=== PATIENT | female | born 1990 | race Caucasian/White ===

== ENCOUNTER 2024-04-02 16:25 | Inpatient (IN) | payer MEDICAID, OTHER ==
[2024-04-02] MEDS ORDERED: OLANZapine 10 MG VIAL IM PRN (18:13)
[2024-04-02] MEDS ORDERED: hydrOXYzine HCL 50 MG/ML 1 ML VIAL IM PRN (18:13)
[2024-04-02] MEDS ORDERED: MAGNESIUM HYDROXIDE 2,400 MG/30 ML CUP PO PRN (18:13)
[2024-04-02] MEDS ORDERED: hydrOXYzine pamoate 25 MG CAP PO PRN (18:18)
[2024-04-02] MEDS: MAG HYDROX/AL HYDROX/SIMETH 355 ML BOTTLE PO PRN (19:09)
[2024-04-02] MEDS: hydrOXYzine HCL 25 MG TAB PO SCH (20:53)
[2024-04-02] MEDS: OLANZapine 10 MG TAB PO SCH (20:53)
[2024-04-02] MEDS: traZODone HCL 50 MG TAB PO SCH (20:53)
[2024-04-02] MEDS: carBAMazepine 200 MG TAB PO SCH (20:54)
[2024-04-02] MEDS: IBUPROFEN 600 MG TAB PO PRN (20:55)
[2024-04-02] MEDS: VALPROIC ACID ORAL SOLN 250 MG/5 ML CUP PO SCH (21:17)
[2024-04-02] MEDS: DIVALPROEX 500 MG TABLET.DR PO SCH (21:58)
--- NOTE | 2024-04-03 05:07 | P.CONS ---
History of Present Illness - Reason for Consult Consult date: 04/03/24 - History of Present Illness The patient is a 33-year-old female resident of [facility] who was transferred from outside facility where the patient had been admitted for psychosis. The patient was seen in the mental health unit while accompanied by MHU RN. The patient reported no active complaints at the time of interview. She denied experiencing chest discomfort, shortness of breath, fever, chills, cough, nausea, vomiting, abdominal, diarrhea. She reports recreational marijuana use and tobacco use but denied any additional illicit substance or alcohol use. Review of systems: Pertinent positives and negatives as discussed in HPI, a complete review of systems was performed and all other systems are negative. Physical examination: General: non toxic, no distress, appears at stated age, morbidly obese Derm: no unusual rashes/lesions, no unusual ecchymoses, warm, dry Head: atraumatic, normocephalic, symmetric Eyes: EOMI, no lid lag, anicteric sclera ENT: Nose and ears atraumatic, no thrush, no pharyngeal erythema Neck: trachea midline, supple Mouth: no lip lesion, mucus membranes moist Cardiovascular: S1S2 reg, no murmur, no edema Lungs: CTA bilateral, no rhonchi, no rales , no accessory muscle use Abdominal: soft, nontender to palpation, no guarding Ext: no gross muscle atrophy, no contractures, Neuro: No gross focal neuro deficits noted Psych: Alert, oriented, appropriate affect Assessment: Marijuana use Tobacco use Psychosis Elevated TSH, likely subclinical hypothyroidism Imaging: None performed Data Review: Reviewed with TSH 5.5, free T40.92, carbamazepine 2.3, A1c 5.3 Plan: Advised on importance of cessation from marijuana use Defer management of psychosis to primary psychiatry service Thank you for allowing us to participate in the care of this patient. We will follow peripherally. Do not hesitate to contact us with questions. Someone can be reached from the [facility] hospitalist group at all hours of the day at [phone]. Medications and Allergies Allergies Allergy/AdvReac Type Severity Reaction Status Date / Time acetaminophen [From Tylenol] Allergy Unknown Unknown Verified 04/02/24 16:25 patino pepper Allergy Unknown Unknown Verified 04/02/24 16:25 [place] And Derivatives Allergy Unknown Unknown Verified 04/02/24 16:25 [Coroz[place]] haloperidol [From Haldol] Allergy Unknown Unknown Verified 04/02/24 16:25 lorazepam [From Ativan] Allergy Unknown Unknown Verified 04/02/24 16:25 orange juice [Dukes] Allergy Unknown Unknown Verified 04/02/24 16:25 Penicillins Allergy Unknown Unknown Verified 04/02/24 16:25 shellfish derived Allergy Unknown Unknown Verified 04/02/24 16:25 tomato Allergy Unknown Unknown Verified 04/02/24 16:25 bee venom protein (honey bee) Allergy Unknown Verified 04/02/24 18:24 nicotine Allergy Unknown Verified 04/02/24 18:24 Physical Exam Vitals: Vital Signs Temp Pulse Resp BP Pulse Ox 04/02/24 19:14 96.9 F L 92 24 135/68 97 Intake and Output 04/02/24 04/02/24 04/03/24 14:59 22:59 06:59 Other: Weight 132.647 kg
[2024-04-03] MEDS: SERTRALINE 50 MG TAB PO SCH (08:17)
[2024-04-03 09:37] LABS: Valproic Acid (Depakene) 35.5 ug/mL
[2024-04-03 13:18] LABS: Carbamazepine (Tegretol) 2.3 UG/ML (4.0-12.0); Chol/HDL Ratio 4.33 Ratio; LDL Cholesterol,Calculated 143.1 mg/dL (0.0-131.0)
--- NOTE | 2024-04-03 14:17 | P.HP ---
Psychiatric H&P - . H&P Date: 04/03/24 History & Physical: IDENTIFYING DATA: Patient is a 33 year old woman on disability who resides in an adult foster care residence. HPI: Clarisse Cornejo is a 33 year old woman with a history of schizoaffective disorder, mild intellectual disability, and prior suicide attempt who presented as a transfer from [facility] on 04/02/24 after having had a suicide attempt. Per EPS: "Pt is transfer from [facility]. Per packet, pt was brought in from nursing home after attempting suicide by drinking half a bottle of body wash and stapling her arm. pt states that this is due to having a fight with her boyfriend. pt was apparently spitting, swearing, and in restraints in [facility]. pt also reported auditory hallucinations telling her to harm herself and others." Today, Ms. Cornejo reports having had an increase in "voices telling me to kill myself" on the day of her suicide attempt. She described having stapled her arm, showing the scars on her left forearm, and drinking body wash with the hope and intention of ending her life. Her mood had been "good" before this occurred, and she was not experiencing an increase in depression or sadness recently. The main trigger for the attempt were the voices she experienced. She describes having "a little bit" of auditory hallucinations, mostly "stupid stuff" like name-calling and put downs. She denies visual hallucinations. She reports having had one prior suicide attempt two years ago when she walked in front of a car. She did receive psychiatric care after that attempt. Her mood is "upset" today due to frustration with not receiving a CT scan, which she was under the impression she'd be getting due to bumping her head prior to arrival at this hospital. She did not sleep well last night but generally does not have difficulty sleeping. Her appetite is stable. She denies feeling anxious or excessively worried about things. She gets along well with the other residents at her adult foster retirement; she is the youngest resident there. Ms. Cornejo denies suicidal ideation today; she has no thoughts, plans, or intentions of harming herself. She also denies homicidal ideation. She denies access to firearms or other weapons at home. She reports daily marijuana use recently; she describes having obtained this from a trusted source and was not concerned about the marijuana being tampered with or laced with other substances. She also drank a fifth of Catarino prior to admission. She denies daily drinking on a regular basis. Ms. Cornejo is presently under guardianship through [facility]. PAST PSYCHIATRIC HISTORY: Patient has a history of schizoaffective disorder, mild intellectual disability, and a prior suicide attempt (running in front of a car 2 years ago). Previously admitted for inpatient care and presently receiving outpatient treatment through [facility]. Presently treated with PMH: GERD and seizures (see medical consult note for additional information) ALLERGIES: Allergy/AdvReac Type Severity Reaction Status Date / Time acetaminophen [From Tylenol] Allergy Unknown Unknown Verified 04/02/24 16:25 patino pepper Allergy Unknown Unknown Verified 04/02/24 16:25 [place] And Derivatives Allergy Unknown Unknown Verified 04/02/24 16:25 [[place]] haloperidol [From Haldol] Allergy Unknown Unknown Verified 04/02/24 16:25 lorazepam [From Ativan] Allergy Unknown Unknown Verified 04/02/24 16:25 orange juice [Acadia] Allergy Unknown Unknown Verified 04/02/24 16:25 Penicillins Allergy Unknown Unknown Verified 04/02/24 16:25 shellfish derived Allergy Unknown Unknown Verified 04/02/24 16:25 tomato Allergy Unknown Unknown Verified 04/02/24 16:25 bee venom protein (honey bee) Allergy Unknown Verified 04/02/24 18:24 nicotine Allergy Unknown Verified 04/02/24 18:24 CHEMICAL DEPENDENCY HISTORY: Recently using marijuana daily and drank a fifth of Catarino prior to admission. Denies other substance use. SOCIAL HISTORY: Patient completed 12th grade and was in special education. No employment history. Currently receives SSI. Resides in an adult foster retirement. Has a boyfriend (together 6 months). No outside social support. Denies access to firearms. Vital Signs Temp 96.9 F L 04/02/24 19:14 Pulse 92 04/02/24 19:14 Resp 24 04/02/24 19:14 BP 120/73 04/03/24 08:49 Pulse Ox 97 04/02/24 19:14 FiO2 Intake & Output 04/02/24 04/03/24 04/03/24 18:59 06:59 18:59 Weight 132.647 kg MENTAL STATUS EXAM: General Appearance: Patient appears to be younger than stated age is alert, directable, and attempts to cooperate. Patient appears to have fair hygiene and grooming. Behavior: Patient is lying down without any agitated behavior. Speech: Patient's speech is fluent and nonpressured. Mood/Affect: Patient reports their mood is "upset", affect is expressive and congruent Suicidality/Homicidality: Patient denies having any homicidal ideation intent or plan. Denies any suicidal ideations intent or plan] Perceptions: Patient denies any visual hallucinations. Patient does endorse hearing voices saying "stupid stuff;" no present command hallucinations. Though content/process: There is no evidence of any delusional thought content and thought process is linear and goal-directed. Somewhat preoccupied with getting a CT Scan. Memory and concentration: AOX3, grossly intact for the purposes of this session. Judgment and insight: poor STRENGTHS/WEAKNESSES: strength is that patient is resilient. Weakness is that patient has poor judgment and is impulsive INTELLECT: below average IMPRESSIONS: Schizoaffective disorder, by history Mild intellectual disability Consider borderline personality disorder traits PLAN: -Patient is admitted under voluntary status to MHU for stabilization of psychiatric symptoms and safety. Patient has signed adult voluntary form and medication consent and is placed in patient's chart. -Medications : - Olanzapine 10 mg BID - Sertraline 50 mg daily - Hydroxyzine 50 mg TID - Trazodone 150 mg QHS - For seizures: Carbamazepine 200 mg TID & Depakene 1000 mg QHS -Hydroxyzine and Olanzapine PRN for agitation/aggression -Patient was counselled on substance abuse and desired to cut back on use -Patient was informed of the risks, benefits and side effects of the medication and patient verbally consented to taking the medications. Patient signed med consent form and was placed in chart. -Internal Medicine consult to perform medical evaluation and physical. -SW on board for discharge planning. Encourage patient to participate in groups to work on coping skills. - Patient has a guardian through [employer]; point of contact is Tammie Meade , extension [phone] - Patient resides in an adult foster retirement. manager operating is David
[2024-04-03] MEDS: PANTOPRAZOLE 40 MG TABLET PO SCH (17:07)
--- NOTE | 2024-04-04 10:30 | CT ---
EXAMINATION TYPE: CT brain wo con DATE OF EXAM: 04/04/2024 COMPARISON: None CLINICAL INDICATION: Female, 33 years old with history of blurred vision; PHH, blurred vision CT DLP: 1037.1 mGycm Automated exposure control for dose reduction was used. Findings: The ventricles, basal cisterns and sulci over the convexities are within normal limits and there is n o mass effect or shift of midline structures. No abnormal density is seen throughout the brain parenchyma and there is no acute intra or extra-axia l hemorrhage. The posterior fossa including the brainstem, fourth ventricle and cerebellar pontine angles appear no rmal. Intraorbital contents appear normal and symmetric. Visualized paranasal sinuses and mastoid air cells are well aerated. The calvarium is intact. IMPRESSION: No significant abnormality seen. There is no acute bleed or mass effect. [facility], Workstation: [id number] 04/04/2024 10:27 AM
--- NOTE | 2024-04-04 15:22 | P.PN ---
Progress Note - Text Interval history: Patient was seen in the hallway and was directable and agreeable to speak with resume writer in the office. She described her mood as "good". She was concerned that she was vomiting and feeling nauseous this morning and was wondering if this was related to her history of seizures. Additionally she is experiencing blurry vi kimber. She was planning to go to a head CT scan shortly after our visit. Both sleep and appetite have been stable. She describes a decreased in auditory hallucinations; these have improved since she came to the hospital. She denies suicidal ideation, identified method, intent, or plan. She also denies homicidal ideation, intent, or plan. She has been talking to her boyfriend and feels that this has been positive. Patient denies any side effects from the medications and has been compliant with meds. Mental status exam: General Appearance: Patient appears to be younger than stated age is alert, directable, and attempts to cooperate. Patient appears to have fair hygiene and grooming. Behavior: Patient is seated without any agitated behavior. Speech: Patient's speech is fluent and non-pressured. Mood/Affect: Patient reports their mood is "good", affect is euthymic and congruent Suicidality/Homicidality: Patient denies having any homicidal ideation intent or plan. Denies any suicidal ideations intent or plan Perceptions: Patient denies any visual hallucinations. Patient does endorse hearing voices, but these have decreased. Though content/process: There is no evidence of any overtly delusional thought content and thought process is linear and goal-directed. Memory and concentration: AOX3, grossly intact for the purposes of this session. Judgment and insight: Questionable IMPRESSIONS: Schizoaffective disorder, by history Mild intellectual disability Consider borderline personality disorder traits Plan: -Patient is admitted under voluntary status to MHU for stabilization of psychiatric symptoms and safety. Patient has signed adult voluntary form and medication consent and is placed in patient's chart. -Patient continues to meet criteria for inpatient psychiatric admission for symptom stabilization and safety. -Medications : - Olanzapine 10 mg BID - Sertraline 50 mg daily - Hydroxyzine 50 mg TID - Trazodone 150 mg QHS - For seizures: Carbamazepine 200 mg TID & Depakene 1000 mg QHS -Hydroxyzine and Olanzapine PRN for agitation/aggression -Patient was counselled on substance abuse and desired to cut back on use -Patient was informed of the risks, benefits and side effects of the medication and patient verbally consented to taking the medications. Patient signed med consent form and was placed in chart. -Internal Medicine consult completed. Head CT was unremarkable. -Encourage patient to participate in groups to work on coping skills. - Patient has a guardian through [employer]; point of contact is Tammie Meade , extension [phone] - Patient resides in an adult foster [facility]. manpower development manager is David
--- NOTE | 2024-04-05 11:46 | P.PN ---
Progress Note - Text Progress Note Date: 04/05/24 Interval history: Patient was seen in the hallway and was directable and agreeable to speak with technical document writer in the office. Patient claims that she is feeling "a bit angry" however did state overall that she is getting along with others, doing well. Reflected back on why she came to the hospital. States that she stabled her skin and also was hearing voices. She minimized any stressors going on in her life. She did appear to be fairly future oriented, focused on discharge. Denying any problems with her medications at this time or side effects. We spoke about adjusting her Zoloft to help with her anxiety and also mood swings. Patient was also agreeable to have her Depakote increased at nighttime. She denies suicidal ideation, identified method, intent, or plan. She also denies homicidal ideation, intent, or plan. She is denying any auditory or visual hallucinations. Mental status exam: General Appearance: Patient appears to be overweight, shaved head, than stated age is alert, directable, and attempts to cooperate. Patient appears to have fair hygiene and grooming. Behavior: Patient is seated without any agitated behavior. Comes to cooperate Speech: Patient's speech is fluent and non-pressured. Mood/Affect: Patient reports their mood is "a bit angry today", affect is euthymic and congruent Suicidality/Homicidality: Patient denies having any homicidal ideation intent or plan. Denies any suicidal ideations intent or plan Perceptions: Patient denies any visual hallucinations. denies any auditory hallucinations. Though content/process: There is no evidence of any overtly delusional thought content and thought process is linear and goal-directed. focused on discharge Memory and concentration: AOX3, grossly intact for the purposes of this session. Judgment and insight: chronically impulsive/poor, improving mildly IMPRESSIONS: Schizoaffective disorder Mild intellectual disability borderline personality disorder Plan: -Patient is admitted under voluntary status to MHU for stabilization of psychiatric symptoms and safety. Patient has signed adult voluntary form and medication consent and is placed in patient's chart. -Patient continues to meet criteria for inpatient psychiatric admission for symptom stabilization and safety. -Medications : - Olanzapine 10 mg BID - increase Sertraline 100 mg daily - Hydroxyzine 50 mg TID - Trazodone 150 mg QHS - Carbamazepine 200 mg TID & increase Depakene 1500 mg QHS for mood stabilization -Hydroxyzine and Olanzapine PRN for agitation/[id number] -Encourage patient to participate in groups to work on coping skills. -Hopeful for discharge tomorrow patient will be going back to her skilled nursing.
[2024-04-05] MEDS: OLANZapine 5 MG TAB PO PRN (12:14)
[2024-04-05] MEDS: SERTRALINE 50 MG TAB PO STA (12:14)
[2024-04-05] MEDS: chlorproMAZINE 25 MG/ML 2 ML AMP IM ONE (13:20)
[2024-04-05] MEDS ORDERED: BENZTROPINE MESYLATE 1 MG TAB PO PRN (14:14)
[2024-04-05] MEDS: VALPROIC ACID ORAL SOLN 250 MG/5 ML CUP PO SCH (21:48)
[2024-04-06] MEDS: SERTRALINE 100 MG TAB PO SCH (09:04)
--- NOTE | 2024-04-06 11:27 | P.PN ---
Progress Note - Text Progress Note Date: 04/06/24 Interval history: Patient was seen in the hallway and was directable and agreeable to speak with video games storywriter in the office. Patient claims that she is doing a bit better today. She states that at she slept fairly at nighttime. She continues to be fairly somatically preoccupied, believes that she possibly had a seizure last night and alert of the staff. She received a as needed yesterday for agitation towards another patient. She appears to be more cooperative today and directable during conversation. Continues to have very poor insight poor judgment poor impulse control. She claims that she could possibly go to [facility] however is waiting for guardian approval. Denying any problems with her medications at this time or side effects. She denies suicidal ideation, identified method, intent, or plan. She also denies homicidal ideation, intent, or plan. She is denying any auditory or visual hallucinations. Mental status exam: General Appearance: Patient appears to be overweight, shaved head, than stated age is alert, directable, and attempts to cooperate. Patient appears to have fair hygiene and grooming. Behavior: Patient is seated without any agitated behavior. Attempts to cooperate Speech: Patient's speech is fluent and non-pressured. Mood/Affect: Patient reports their mood is "a bit better", affect is congruent Suicidality/Homicidality: Patient denies having any homicidal ideation intent or plan. Denies any suicidal ideations intent or plan Perceptions: Patient denies any visual hallucinations. denies any auditory hallucinations. Though content/process: There is no evidence of any overtly delusional thought content and thought process is linear and goal-directed. focused on discharge, somatically preoccupied Memory and concentration: AOX3, grossly intact for the purposes of this session. Judgment and insight: chronically impulsive/poor, improving mildly IMPRESSIONS: Schizoaffective disorder Mild intellectual disability borderline personality disorder Plan: -Patient is admitted under voluntary status to MHU for stabilization of psychiatric symptoms and safety. Patient has signed adult voluntary form and medication consent and is placed in patient's chart. -Patient continues to meet criteria for inpatient psychiatric admission for sy mptom stabilization and safety. -Medications : - Olanzapine 10 mg BID - Sertraline 100 mg daily - Hydroxyzine 50 mg TID - Trazodone 150 mg QHS - Carbamazepine 200 mg TID & Depakene 1500 mg QHS for mood stabilization -Hydroxyzine and Olanzapine PRN for agitation/aggression -Encourage patient to participate in groups to work on coping skills. -Hopeful for discharge once patient gets placement, will continue working with cari mares for this
--- NOTE | 2024-04-07 11:24 | P.PN ---
Progress Note - Text Progress Note Date: 04/07/24 Interval history: Patient was seen in the hallway and was directable and agreeable to speak with public relations writer in the office. Patient claims that she is doing a bit better today overall, did not report any overnight complaints. She states that at she did not sleep well last night, was requesting to have her trazodone increased. She was less somatically preoccupied today. She was focused on discharge planning, was fairly focused on calling different group homes to ask for a bed. We spoke about the plan involving social sciences research scientist and her guardian she seemed to be agreeable and will be waiting for a crisis bed. She appears to be more cooperative today and directable during conversation. Continues to have poor insight poor judgment poor impulse control however this is improving mildly. Denying any problems with her medications at this time or side effects. She denies suicidal ideation, identified method, intent, or plan. She also denies homicidal ideation, intent, or plan. She is denying any auditory or visual hallucinations. Mental status exam: General Appearance: Patient appears to be overweight, shaved head, than stated age is alert, directable, and attempts to cooperate. Patient appears to have fair hygiene and grooming. Behavior: Patient is seated without any agitated behavior. Attempts to cooperate Speech: Patient's speech is fluent and non-pressured. Mood/Affect: Patient reports their mood is "ok", affect is congruent Suicidality/Homicidality: Patient denies having any homicidal ideation intent or plan. Denies any suicidal ideations intent or plan Perceptions: Patient denies any visual hallucinations. denies any auditory hallucinations. Though content/process: There is no evidence of any overtly delusional thought content and thought process is linear and goal-directed. focused on discharge Memory and concentration: AOX3, grossly intact for the purposes of this session. Judgment and insight: chronically impulsive/poor, improving mildly IMPRESSIONS: Schizoaffective disorder Mild intellectual disability borderline personality disorder Plan: -Patient is admitted under voluntary status to MHU for stabilization of psychiatric symptoms and safety. Patient has signed adult voluntary form and medication consent and is placed in patient's chart. -Patient continues to meet criteria for inpatient psychiatric admission for symptom stabilization and safety. -Medications : - Olanzapine 10 mg BID - Sertraline 100 mg daily - Hydroxyzine 50 mg TID -Increase trazodone to 100 mg QHS - Carbamazepine 200 mg TID & Depakene 1500 mg QHS for mood stabilization -Hydroxyzine and Olanzapine PRN for agitation/aggression -Encourage patient to participate in groups to work on coping skills. -Hopeful for discharge once patient gets placement, will continue working with cari mares for this as they are attempting to get patient a crisis bed in [facility].
[2024-04-07] MEDS: traZODone HCL 100 MG TAB PO SCH (20:39)
--- NOTE | 2024-04-08 10:29 | P.PN ---
Progress Note - Text Progress Note Date: 04/08/24 Interval history: Patient was seen in the hallway and was directable and agreeable to speak with technical writer. She states that yesterday her knee was a bit swollen and she was having some pain, did not say that she had any trauma to it. She took ibuprofen which helped. Patient was fairly focused on her medications today, asked to have a Tegretol level drawn. Patient claims that she is doing a bit better today overall, did not report any overnight complaints. She states that she slept a bit better last night. She was focused on discharge planning, was fairly focused on calling different group homes to ask for a bed however she was told due to the lack of beds and also the holiday, it is unlikely that a bed will be free for her to go to. Continues to have poor insight poor judgment poor impulse control however this is improving mildly. Denying any problems with her medications at this time or side effects. She denies suicidal ideation, identified method, intent, or plan. She also denies homicidal ideation, intent, or plan. She is denying any auditory or visual hallucinations. Mental status exam: General Appearance: Patient appears to be overweight, shaved head, than stated age is alert, directable, and attempts to cooperate. Patient appears to have fair hygiene and grooming. Behavior: Patient is seated without any agitated behavior. Attempts to cooperate Speech: Patient's speech is fluent and non-pressured. Mood/Affect: Patient reports their mood is "ok", affect is congruent Suicidality/Homicidality: Patient denies having any homicidal ideation intent or plan. Denies any suicidal ideations intent or plan Perceptions: Patient denies any visual hallucinations. denies any auditory hallucinations. Though content/process: There is no evidence of any overtly delusional thought content and thought process is linear and goal-directed. focused on discharge and somatically preoccupied Memory and concentration: AOX3, grossly intact for the purposes of this session. Judgment and insight: chronically impulsive/poor, improving mildly IMPRESSIONS: Schizoaffective disorder Mild intellectual disability borderline personality disorder Plan: -Patient is admitted under voluntary status to MHU for stabilization of psychiatric symptoms and safety. Patient has signed adult voluntary form and medication consent and is placed in patient's chart. -Patient continues to meet criteria for inpatient psychiatric admission for symptom stabilization and safety. -Medications : - Olanzapine 10 mg BID - Sertraline 100 mg daily - Hydroxyzine 50 mg TID -trazodone to 100 mg QHS - Carbamazepine 200 mg TID & Depakene 1500 mg QHS for mood stabilization -ordered tegretol level for tomorrow morning. -Hydroxyzine and Olanzapine PRN for agitation/aggression -Encourage patient to participate in groups to work on coping skills. -Hopeful for discharge once patient gets placement, will continue working with [facility] for this as they are attempting to get patient a crisis bed in [facility]. likely discharge next week once crisis bed is available.
--- NOTE | 2024-04-09 10:51 | P.PN ---
Progress Note - Text Progress Note Date: 04/09/24 Interval history: Patient was seen in in her room today. She apparently was aggressive agitated last night spitting at staff and verbally aggressive as well. She received Thorazine IM. Patient slept through the night. She appeared to be fairly drowsy this morning, continues to be fairly uncooperative very poor insight and poor judgment. Continues to focus on having a assisted bed [facility] This has not been confirmed by any staff members or social science professor. She continues to be focused on her guardian. Denying any problems with her medications at this time or side effects. She denies suicidal ideation, identified method, intent, or plan. She also denies homicidal ideation, intent, or plan. She is denying any auditory or visual hallucinations. Mental status exam: General Appearance: Patient appears to be overweight, shaved head, than stated age is alert, directable, and attempts to cooperate. Patient appears to have fair hygiene and grooming. Behavior: Patient is seated without any agitated behavior. Attempts to cooperate, remains impulsive Speech: Patient's speech is fluent and non-pressured. Mood/Affect: Patient reports their mood is "fine", affect is incongruent Suicidality/Homicidality: Patient denies having any homicidal ideation intent or plan. Denies any suicidal ideations intent or plan Perceptions: Patient denies any visual hallucinations. denies any auditory hallucinations. Though content/process: There is no evidence of any overtly delusional thought content and thought process is linear and goal-directed. focused on discharge and her gaurdian. Memory and concentration: AOX3, grossly intact for the purposes of this session. Judgment and insight: chronically impulsive/poor IMPRESSIONS: Schizoaffective disorder Mild intellectual disability borderline personality disorder Plan: -Patient is admitted under voluntary status to MHU for stabilization of psychiatric symptoms and safety. Patient has signed adult voluntary form and medication consent and is placed in patient's chart. -Patient continues to meet criteria for inpatient psychiatric admission for symptom stabilization and safety. -Medications : - Olanzapine 10 mg BID - Sertraline 100 mg daily - Hydroxyzine 50 mg TID -trazodone 100 mg QHS - Carbamazepine 200 mg TID & Depakene 1500 mg QHS for mood stabilization -tegretol level - pending -Hydroxyzine, benadryl and Thorazine PRN for agitation/aggression -Encourage patient to participate in groups to work on coping skills. -Hopeful for discharge once patient gets placement, will continue working with [facility] for this as they are attempting to get patient a crisis bed in [facility]. likely discharge next week once crisis bed is available.
[2024-04-09] MEDS: busPIRone HCl 10 MG TAB PO PRN (20:50)
[2024-04-10 00:51] LABS: Appearance,Urine Clear (Clear); Bacteria,Urine Rare /hpf; Bilirubin,Urine Negative (Negative); Blood,Urine Trace (Negative); Budding Yeast,Urine Rare /hpf; Color,Urine Colorless; Glucose,Urine (UA) Negative (Negative); Ketones,Urine 1+ (Negative); Leukocyte Esterase,Urine Small (Negative); Mucus,Urine Rare /hpf; Nitrite,Urine Negative (Negative); PH, Urine 5.5 (5.0-8.0); Protein,Urine Negative (Negative); RBC,Urine 2 /hpf (0-5); Specific Gravity,Urine 1.024 (1.001-1.035); Squamous Epithelial Cell,Urine 3 /hpf (0-4); Urobilinogen,Urine <2.0 mg/dL (<2.0); WBC,Urine 2 /hpf (0-5)
--- NOTE | 2024-04-10 10:56 | P.PN ---
Progress Note - Text Progress Note Date: 04/10/24 Interval history: Patient was seen wandering the hallways and was directable and agreeable to s peak with consumer loan underwriter. Patient states that she had a good response to BuSpar, was requesting to have it scheduled. She also wanted the Vistaril discontinued. She claims that she is doing a bit better today with her mood and anxiety. She states that she is sleeping on and off last night we spoke about adding Remeron which she is okay with. She continues to be focused on discharge, we spoke about coping skills. At this time patient denies any suicidal or homicidal ideations intent or plan. Denies any Auditory or visual hallucinations. Patient denies any side effects from the medications and has been compliant with meds. Mental status exam: General Appearance: Patient appears to be overweight, shaved head, stated age is alert, directable, and cooperative. Behavior: No agitated behavior. Patient is calm and directable ems to cooperate Speech: Patient's speech is fluent and nonpressured. Mood/Affect: Mood is improving mildly, affect is congruent and constricted. Suicidality/Homicidality: Patient denies having any suicidal or homicidal ideation intent or plan. Perceptions: Patient denies any auditory or visual hallucinations. Though content/process: There is no evidence of any delusional thought content and thought process is linear and goal-directed. Focused on her symptoms and discharge Memory and concentration: AOX3, grossly intact for the purposes of this session Judgment and insight: improving mildly Assessment/Plan: Continue with current diagnosis. Patient continues to meet criteria for inpatient psychiatric admission for symptom stabilization and safety. Patient will be maintained on current psychotropic medication regimen with the exception of starting scheduled BuSpar twice daily and Remeron 15 mg nightly. Monitor for medication compliance and for any psychotropic medication side effects. Will continue to monitor ongoing response to treatment. Encouraged participation in milieu. Hopeful for discharge Friday or Friday
[2024-04-10] MEDS: diphenhydrAMINE 50 MG CAP PO PRN (19:09)
[2024-04-10] MEDS: MIRTAZAPINE 15 MG TAB PO SCH (20:10)
[2024-04-10] MEDS: busPIRone HCl 10 MG TAB PO SCH (20:11)
--- NOTE | 2024-04-11 09:37 | P.PN ---
Progress Note - Text Progress Note Date: 04/11/24 Interval history: Patient was seen wandering the hallways and was directable and agreeable to s peak with bond writer. patient claims that shes doing well overall today. She is continuing to be fairly focused on discharge. Claims that her anxiety and movement have been improving. She was fairly directable today. She did complain of having a boil for the past 2 days on her upper thigh. Recovery Room Rn performed an examination on this accompanied by vineyardist nurse. Patient did claim that it was hurting her at this time. She did sleep last night throughout the night has a fair appetite. At this time patient denies any suicidal or homicidal ideations intent or plan. Denies any Auditory or visual hallucinations. Patient denies any side effects from the medications and has been compliant with meds. Mental status exam: General Appearance: Patient appears to be overweight, shaved head, stated age is alert, directable, and cooperative. Behavior: No agitated behavior. Patient is calm and directable ems to cooperate Speech: Patient's speech is fluent and nonpressured. Mood/Affect: Mood is improving mildly, affect is congruent and constricted. Improving Suicidality/Homicidality: Patient denies having any suicidal or homicidal ideation intent or plan. Perceptions: Patient denies any auditory or visual hallucinations. Though content/process: There is no evidence of any delusional thought content and thought process is linear and goal-directed. Focused on her symptoms and discharge, improving Memory and concentration: AOX3, grossly intact for the purposes of this session Judgment and insight: improving mildly Assessment/Plan: Continue with current diagnosis. Patient continues to meet criteria for inpatient psychiatric admission for symptom stabilization and safety. Patient will be maintained on current psychotropic medication regimen. Monitor for medication compliance and for any psychotropic medication side effects. Will continue to monitor ongoing response to treatment. Encouraged participation in milieu. Hopeful for discharge Friday or Friday
[2024-04-11] MEDS: CEPHALEXIN 500 MG CAP PO SCH (09:55)
[2024-04-12] MEDS: chlorproMAZINE 25 MG TAB PO PRN (09:32)
--- NOTE | 2024-04-12 10:24 | P.PN ---
Progress Note - Text Progress Note Date: 04/12/24 Interval history: Patient was seen wandering the hallways today. Patient was fairly persistent and wanting to speak to procedure writer today in the office. She states that she feels that she could get into a bed however feels the social sciences department chair is not helping her enough. She did appear to be somewhat irritated this morning, claims that she did not go to group because she was feeling upset. She is focused on discharge throughout the entire conversation. Claims that she had a difficult time sleepi ng last night asked to have her medications adjusted for nighttime. States that she has been eating well, mood and anxiety been improving. Denying any problems with her medications at this time or side effects. She denies suicidal ideation, identified method, intent, or plan. She also denies homicidal ideation, intent, or plan. She is denying any auditory or visual hallucinations. Mental status exam: General Appearance: Patient appears to be overweight, shaved head, than stated age is alert, directable, and attempts to cooperate. Patient appears to have fair hygiene and grooming. Behavior: Patient is seated without any agitated behavior. Attempts to cooperate, improving today Speech: Patient's speech is fluent and non-pressured. Mood/Affect: Patient reports their mood is "ok", affect is congruent Suicidality/Homicidality: Patient denies having any homicidal ideation intent or plan. Denies any suicidal ideations intent or plan Perceptions: Patient denies any visual hallucinations. denies any auditory hallucinations. Though content/process: There is no evidence of any overtly delusional thought content and thought process is linear and goal-directed. focused on discharge Memory and concentration: AOX3, grossly intact for the purposes of this session. Judgment and insight: improving IMPRESSIONS: Schizoaffective disorder Mild intellectual disability borderline personality disorder Plan: -Patient is admitted under voluntary status to MHU for stabilization of psychiatric symptoms and safety. Patient has signed adult voluntary form and medication consent and is placed in patient's chart. -Patient continues to meet criteria for inpatient psychiatric admission for symptom stabilization and safety. -Medications : - Olanzapine 10 mg BID - Sertraline 100 mg daily - Hydroxyzine 50 mg TID -increase remeron 30 mg qhs -increase buspar to 30 mg bid -Increase trazodone 300 mg QHS - Carbamazepine 200 mg TID & Depakene 1500 mg QHS for mood stabilization -tegretol level - pending -Hydroxyzine, benadryl and Thorazine PRN for agitation/aggression -Encourage patient to participate in groups to work on coping skills. -Hopeful for discharge once patient gets placement, will continue working with [facility] for this as they are attempting to get patient a crisis bed in [facility]. likely discharge this week once crisis bed is available.
[2024-04-12] MEDS: busPIRone HCl 10 MG TAB PO SCH (20:34)
[2024-04-12] MEDS: traZODone HCL 100 MG TAB PO SCH (20:35)
[2024-04-12] MEDS: MIRTAZAPINE 15 MG TAB PO SCH (20:37)
--- NOTE | 2024-04-13 10:55 | P.PN ---
Progress Note - Text Progress Note Date: 04/13/24 Interval history: Patient was seen wandering the hallways today. Patient continues to be fairly focused on her medications and claims that she injured her knee when she had a seizure the other day. She states that she wants an x-ray. She also continues to be fairly demanding in terms of having a dietary consultation. She is not reporting any depression or anxiety at this time. Claims that she is getting along with others going to groups. She is focused on discharge throughout most of the conversation. Says she was able to sleep about 6 or 7 hours last night. States that she has been eating well, mood and anxiety been improving. Denying any problems with her medications at this time or side effects. She denies suicidal ideation, identified method, intent, or plan. She also denies homicidal ideation, intent, or plan. She is denying any auditory or visual hallucinations. Mental status exam: General Appearance: Patient appears to be overweight, shaved head, than stated age is alert, directable, and attempts to cooperate. Patient appears to have fair hygiene and grooming. Behavior: Patient is seated without any agitated behavior. Attempts to cooperate, improving today Speech: Patient's speech is fluent and non-pressured. Mood/Affect: Patient reports their mood is "ok", affect is congruent Suicidality/Homicidality: Patient denies having any homicidal ideation intent or plan. Denies any suicidal ideations intent or plan Perceptions: Patient denies any visual hallucinations. denies any auditory hallucinations. Though content/process: There is no evidence of any overtly delusional thought content and thought process is linear and goal-directed. focused on discharge Memory and concentration: AOX3, grossly intact for the purposes of this session. Judgment and insight: improving IMPRESSIONS: Schizoaffective disorder Mild intellectual disability borderline personality disorder Plan: -Patient is admitted under voluntary status to MHU for stabilization of psychiatric symptoms and safety. Patient has signed adult voluntary form and medication consent and is placed in patient's chart. -Patient continues to meet criteria for inpatient psychiatric admission for symptom stabilization and safety. -Medications : - Olanzapine 10 mg BID - Sertraline 100 mg daily - Hydroxyzine 50 mg TID -remeron 30 mg qhs -d/c buspar due to reported intolerance -trazodone 300 mg QHS - Carbamazepine 200 mg TID & Depakene 1500 mg QHS for mood stabilization -Hydroxyzine, benadryl and Thorazine PRN for agitation/aggression -Encourage patient to participate in groups to work on coping skills. -Hopeful for discharge once patient gets placement, will continue working with [facility] for help with placement. [employer] utility worker to contact guardian today to see if guardian would be okay with temporary hotel/motel or senior living while patient is awaiting a crisis bed. likely discharge in 1 to 2 days
--- NOTE | 2024-04-13 11:02 | XR ---
EXAMINATION TYPE: XR knee complete LT DATE OF EXAM: 04/13/2024 10:26 AM COMPARISON: None CLINICAL INDICATION: Female, 33 years old with history of knee injury/pain; PHH, pain TECHNIQUE: XR knee complete LT 3 views submitted. FINDINGS: No evidence of any acute osseous pathology, soft tissue swelling, or joint effusion is no sriram. IMPRESSION: 1. No acute osseous pathology. 2. Mild tricompartmental osteoarthritic changes. [facility], , 04/13/2024 11:00 AM
[2024-04-13] MEDS: IBUPROFEN 800 MG TAB PO PRN (12:51)
[2024-04-14 08:30] LABS: Glucose,Whole Blood 171 mg/dL (70-110)
--- NOTE | 2024-04-14 10:09 | P.PN ---
Progress Note - Text Progress Note Date: 04/14/24 Interval history: Patient was seen wandering the hallways today. Patient continues to be fairly focused on her medications. She did state that her blood sugars were elevated at 171. She requested to have a hemoglobin A1c checked. Claims that other than that her mood has been fairly stable she has been interacting with others. She continues to be fairly somatically preoccupied and needy. States that she slept fairly last night, has a fair appetite. mood and anxiety been improving. Den huma any problems with her medications at this time or side effects. She denies suicidal ideation, identified method, intent, or plan. She also denies homicidal ideation, intent, or plan. She is denying any auditory or visual hallucinations. Mental status exam: General Appearance: Patient appears to be overweight, shaved head, than stated age is alert, directable, and attempts to cooperate. Patient appears to have fair hygiene and grooming. Behavior: Patient is seated without any agitated behavior. Attempts to cooperate, improving today Speech: Patient's speech is fluent and non-pressured. Mood/Affect: Patient reports their mood is "good", affect is congruent and improving Suicidality/Homicidality: Patient denies having any homicidal ideation intent or plan. Denies any suicidal ideations intent or plan Perceptions: Patient denies any visual hallucinations. denies any auditory hallucinations. Though content/process: There is no evidence of any overtly delusional thought content and thought process is linear and goal-directed. focused on discharge and somatically preoccupied Memory and concentration: AOX3, grossly intact for the purposes of this session. Judgment and insight: improving IMPRESSIONS: Schizoaffective disorder Mild intellectual disability borderline personality disorder Plan: -Patient is admitted under voluntary status to MHU for stabilization of psych iatric symptoms and safety. Patient has signed adult voluntary form and medication consent and is placed in patient's chart. -Patient continues to meet criteria for inpatient psychiatric admission for symptom stabilization and safety. -Medications : - Olanzapine 10 mg BID - Sertraline 100 mg daily - Hydroxyzine 50 mg TID -remeron 30 mg qhs -trazodone 300 mg QHS - Carbamazepine 200 mg TID & Depakene 1500 mg QHS for mood stabilization -Check hemoglobin A1c today. -Hydroxyzine, benadryl and Thorazine PRN for agitation/aggression -Encourage patient to participate in groups to work on coping skills. -Hopeful for discharge once patient gets placement, will continue working with [facility] for help with placement. grey roll worker to contact guardian today to see if guardian would be okay with temporary hotel/motel or senior care while patient is awaiting a crisis bed. likely discharge in 1 to 2 days
[2024-04-14 12:16] LABS: Glucose,Whole Blood 108 mg/dL (70-110)
--- NOTE | 2024-04-14 14:30 | P.PN ---
Subjective Principal diagnosis: Claudia is a 33-year-old female resident of [facility] who was transferred from outside facility where the patient had been admitted for psychosis. Internal medicine was notified that the patient was noted to be hypertensive, having blurrzy vision and had reported dizziness. We were asked to re-evaluate by the patient. Objective - Vital Signs Vital signs: Vital Signs Temp 97.9 F 04/14/24 07:13 Pulse 82 04/14/24 14:00 Resp 16 04/14/24 14:00 BP 152/90 04/14/24 14:00 Pulse Ox 98 04/14/24 07:13 FiO2 - Exam General: Female, appears stated age, obese Derm: no unusual rashes/lesions, no unusual ecchymoses, warm, dry Head: atraumatic, normocephalic, symmetric Eyes: Amblyopia of right eye, no lid lag, anicteric sclera. ENT: Nose and ears atraumatic, no thrush, no pharyngeal erythema Neck: trachea midline, supple Mouth: no lip lesion, mucus membranes moist Cardiovascular: S1S2 reg, no murmur, no edema Lungs: CTA bilateral, no rhonchi, no rales , no accessory muscle use Abdominal: soft, nontender to palpation, no guarding Ext: no gross muscle atrophy, no contractures, Neuro: Bilateral upper and motor strength appears to be 5 out of 5 in strength. Gait was not tested Psych: There appears to be a degree of factitious disorder. She reports that she has left upper extremity weakness however upon my evaluation the patient was noted to be drifting and have full motor strength of her left upper extremity. In addition she has adequate defensive reflexes when tested - Labs Labs: Abnormal Lab Results - Last 24 Hours (Table) 04/14/24 Range/Units 08:29 POC Glucose (mg/dL) 171 H (70-110) mg/dL Assessment and Plan Assessment: #) Factitious disorder. Internal medicine was asked to reevaluate Clarisse upon her request given her nonspecific symptoms of dizziness and blurred vision. She appears to have pupils that spun appropriately to bilateral light stimuli. In addition I have tested some of her defensive reflexes such as hand drop and she is able to appropriately maneuver her hand to avoid causing self-harm. In addition her vital signs appear to be stable. #) Cannabis use- recommend cessation #) Tobacco use- recommend cessation -I do see that there is a C. difficile that is pending from April 13. If by 24 hours there is no stool sample collected I would recommend discontinuation. Thank you for allowing us to participate in the care of this patient. Do not hesitate to contact us with questions. Someone can be reached from the [facility] hospitalist group at all hours of the day at [phone]. Time with Patient: Greater than 30
[2024-04-14 14:46] VITALS: BMI 51.2
[2024-04-14] MEDS: chlorproMAZINE 25 MG/ML 2 ML AMP IM PRN (20:10)
[2024-04-14] MEDS: diphenhydrAMINE 50 MG/ML 1 ML VIAL IM PRN (20:10)
[2024-04-14] MEDS ORDERED: ZIPRASIDONE 20 MG VIAL IM PRN (22:14)
[2024-04-14] MEDS: ZIPRASIDONE 20 MG CAP PO PRN (22:26)
[2024-04-15] MEDS ORDERED: ZIPRASIDONE 20 MG VIAL IM PRN (11:35)
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
[2024-04-15] MEDS: VALPROIC ACID ORAL SOLN 250 MG/5 ML CUP PO SCH (12:14)
--- NOTE | 2024-04-15 14:19 | XR ---
EXAMINATION TYPE: XR wrist limited LT, XR elbow limited LT, XR shoulder limited LT DATE OF EXAM: 04/15/2024 2:04 PM COMPARISON: None CLINICAL INDICATION: Female, 33 years old with history of pain; PHH, pain TECHNIQUE: XR wrist limited LT, XR elbow limited LT, XR shoulder limited LT; 2 views of the wrist, 2 views of the shoulder, 2 views of the elbow. FINDINGS: No acute osseous pathology, joint dislocation, or joint effusion. No evidence of any soft tissue swelling is seen. IMPRESSION: No acute osseous pathology. [facility], , 04/15/2024 2:16 PM
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
[2024-04-17] MEDS: diphenhydrAMINE 50 MG CAP PO STA (13:53)
[2024-04-17] MEDS: predniSONE 20 MG TAB PO STA (13:53)
--- NOTE | 2024-04-17 14:46 | P.PN ---
Subjective Progress Note Date: 04/17/24 Principal diagnosis: Claudia is a 33-year-old female resident of [facility] who was transferred from outside facility where the patient had been admitted for psychosis. 04/17: the patient is noted to have a rash around her right eye and describes pruritis. nursing reported that she had blueberries yesterday Objective - Vital Signs Vital signs: Vital Signs Temp 97.6 F 04/17/24 06:46 Pulse 109 H 04/17/24 06:46 Resp 16 04/17/24 06:46 BP 135/82 04/17/24 06:46 Pulse Ox 99 04/17/24 06:46 FiO2 - Exam General: Female, appears stated age, obese Derm: no unusual rashes/lesions, no unusual ecchymoses, warm, dry Head: atraumatic, normocephalic, symmetric Eyes: Amblyopia of right eye, no lid lag, anicteric sclera. rash around periorbital region ENT: Nose and ears atraumatic, no thrush, no pharyngeal erythema Neck: trachea midline, supple Mouth: no lip lesion, mucus membranes moist Cardiovascular: S1S2 reg, no murmur, no edema Lungs: CTA bilateral, no rhonchi, no rales , no accessory muscle use Abdominal: soft, nontender to palpation, no guarding Ext: no gross muscle atrophy, no contractures, Neuro: Bilateral upper and motor strength appears to be 5 out of 5 in strength. Gait was not tested Psych: calm Assessment and Plan Assessment: #) Factitious disorder #) rash around right eye- concerning for unknown allergic reaction. provide prednisone 20 mg x1. #) Cannabis use- recommend cessation #) Tobacco use- recommend cessation Thank you for allowing us to participate in the care of this patient. Do not hesitate to contact us with questions. Someone can be reached from the [facility] hospitalist group at all hours of the day at [phone]. Time with Patient: Less than 30
[2024-04-17] MEDS: ZIPRASIDONE 20 MG VIAL IM STA ×2 (15:32→15:38)
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
[2024-04-18] MEDS: ZIPRASIDONE 20 MG CAP PO PRN (04:48)
[2024-04-18 08:02] LABS: Glucose,Whole Blood 112 mg/dL (70-110)
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
[2024-04-18] MEDS: LORATADINE 10 MG TAB PO STA (18:08)
[2024-04-18 23:27] LABS: Glucose,Whole Blood 210 mg/dL (70-110)
[2024-04-19 07:04] LABS: Glucose,Whole Blood 104 mg/dL (70-110)
[2024-04-19] MEDS ORDERED: LORazepam 2 MG/ML INJ IM STA (09:57)
[2024-04-19] MEDS: ZIPRASIDONE 20 MG VIAL IM STA (10:22)
[2024-04-19] MEDS: diphenhydrAMINE 50 MG/ML 1 ML VIAL IM STA (10:22)
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
[2024-04-19] MEDS: PALIPERIDONE 3 MG TAB.ER.24 PO SCH (14:16)
--- NOTE | 2024-04-19 15:26 | XR ---
EXAMINATION TYPE: XR wrist limited LT, XR hand limited LT DATE OF EXAM: 04/19/2024 2:32 PM COMPARISON: None CLINICAL INDICATION: Female, 33 years old with history of hand injury;, pain TECHNIQUE: XR wrist limited LT, XR hand limited LT; the wrist and hand were evaluated in 2 views. FINDINGS: No acute osseous pathology, joint dislocation, or joint effusion. No evidence of any soft tissue swelling is seen. IMPRESSION: No acute osseous pathology. [facility], , 04/19/2024 3:23 PM
[2024-04-19] MEDS: traZODone HCL 50 MG TAB PO SCH (20:06)
[2024-04-19] MEDS: carBAMazepine 200 MG TAB PO SCH (20:07)
[2024-04-19] MEDS: NITROGLYCERIN SL TABS 0.4 MG TAB SUBLINGUAL PRN (21:55)
[2024-04-20 02:12] LABS: T4, Free (Free Thyroxine) 0.59 ng/dL (0.78-2.19)
[2024-04-20 09:03] LABS: Chol/HDL Ratio 4.57 Ratio
--- NOTE | 2024-04-20 09:15 | P.PN ---
Progress Note - Text Progress Note Date: 04/20/24 The patient's TSH is borderline elevated and T4 is borderline low. Due to the patient's weight she should ideally be started on 1.6 mcg/kg of levothyroxine however since her TSH and T4 are just borderline abnormal I will start the patient on 100 mcg levothyroxine. Patient will need to follow-up with her PCP and have a repeat TSH in 6 weeks.
--- NOTE | 2024-04-20 11:47 | P.PN ---
Progress Note - Text Progress Note Date: 04/20/24 Interval history: Patient was seen wandering the hallways today. She was fairly focused today on discharge planning. Continues to state that [facility] and asking them for beds. She states that [facility] 2 beds open. She was focused on discharge. Continues to be somewhat intrusive, labile and emotions. Easily angered today. She claims that she is not having any depression or anxiety today. Continues to demonstrate very poor impulse control. Has been going to some groups. Claims that she slept about 3 to 4 hours last night. Denying any problems with her medications at this time or side effects. She denies suicidal ideation, identified method, intent, or plan. She also denies homicidal ideation, intent, or plan. She is denying any auditory or visual hallucinations. Mental status exam: General Appearance: Patient appears to be overweight, shaved head, than stated age is alert, directable, and attempts to cooperate. Patient appears to have fair hygiene and grooming. Behavior: Patient is seated without any agitated behavior. Remains impulsive, improving mildly Speech: Patient's speech is fluent and non-pressured. Demanding Mood/Affect: Patient reports their mood is "better", affect is congruent Suicidality/Homicidality: Patient denies having any homicidal ideation intent or plan. Denies any suicidal ideations intent or plan Perceptions: Patient denies any visual hallucinations. She claims that she is having auditory hallucinations. Though content/process: There is no evidence of any overtly delusional thought content and thought process is linear and goal-directed. somatically preoccupied, rambling. focused on discharge Memory and concentration: AOX3, grossly intact for the purposes of this session Judgment and insight: chronically poor/impulsive, improving mildly IMPRESSIONS: Schizoaffective disorder Mild intellectual disability borderline personality disorder Plan: -Patient is admitted under voluntary status to MHU for stabilization of psychiatric symptoms and safety. Patient has signed adult voluntary form and medication consent and is placed in patient's chart. -Patient continues to meet criteria for inpatient psychiatric admission for symptom stabilization and safety. -Medications : - invega PO 3 mg daily + 6 mg qhs for mood stabilization/aggression - Sertraline 150 mg daily - Hydroxyzine 50 mg TID - remeron 45 mg qhs - increase trazodone 200 mg QHS - titrate off Carbamazepine, continue with Depakene 500 mg daily + 1500 mg QHS for mood stabilization and AED. check Depakote level tomorrow morning. -consider adding clonidine for impulsivity. -Ordered hand and wrist x-ray today due to hand injury self-inflicted -Hydroxyzine, benadryl and Geodon PRN for agitation/aggression -Encourage patient to participate in groups to work on coping skills. -Hopeful for discharge once patient gets placement, will continue working with [facility] for help with placement. cargo station worker continuing to work with guardian for placement, patient was denied a crisis bed in [facility]. Mitchell tinsley and security advisor looking into long-term assisted placement. will have a meeting this afternoon with skip office to discuss realistic options for discharge
[2024-04-20] MEDS: PALIPERIDONE 6 MG TAB.ER.24 PO SCH (20:30)
[2024-04-20] MEDS: MIRTAZAPINE 15 MG TAB PO SCH (20:30)
[2024-04-20] MEDS: traZODone HCL 100 MG TAB PO SCH (20:30)
[2024-04-21] MEDS: LEVOTHYROXINE 100 MCG TAB PO SCH (06:20)
[2024-04-21] MEDS: SERTRALINE 100 MG TAB PO SCH (07:53)
[2024-04-21] MEDS: PALIPERIDONE 3 MG TAB.ER.24 PO SCH (07:54)
--- NOTE | 2024-04-21 11:01 | P.PN ---
Progress Note - Text Progress Note Date: 04/21/24 Interval history: Patient was seen wandering the hallways today. Patient was initially persistent and wanting to speak with documentation writer. She appears to be more calm and cooperative today, we reviewed her medications she has several questions about them. States that she slept better last night with the Benadryl. Claims that she is also eating, finds herself feeling less irritable during the day. We spoke about transitioning her onto the long-acting injection which she is okay with today. She continues to be fairly focused on discharge planning. Denying any problems with her medications at this time or side effects. She denies suicidal ideation, identified method, intent, or plan. She also denies homicidal ideation, intent, or plan. She is denying any auditory or visual hallucinations. Mental status exam: General Appearance: Patient appears to be overweight, shaved head, than stated age is alert, directable, and attempts to cooperate. Patient appears to have fair hygiene and grooming. Behavior: Patient is seated without any agitated behavior. Improving, more cooperative today Speech: Patient's speech is fluent and non-pressured. Mood/Affect: Patient reports their mood is "better", affect is congruent and improving affect Suicidality/Homicidality: Patient denies having any homicidal ideation intent or plan. Denies any suicidal ideations intent or plan Perceptions: Patient denies any visual hallucinations. Denies any auditory hallucinations. Though content/process: There is no evidence of any overtly delusional thought content and thought process is linear and goal-directed. focused on discharge Memory and concentration: AOX3, grossly intact for the purposes of this session Judgment and insight: chronically poor/impulsive, improving mildly IMPRESSIONS: Schizoaffective disorder Mild intellectual disability borderline personality disorder Plan: -Patient is admitted under voluntary status to MHU for stabilization of psychiatric symptoms and safety. Patient has signed adult voluntary form and medication consent and is placed in patient's chart. -Patient continues to meet criteria for inpatient psychiatric admission for symptom stabilization and safety. -Medications : - invega PO 3 mg daily + 6 mg qhs for mood stabilization/aggression, patient is agreeable to be transitioned onto KENNEDY today will give Invega sustenna 234 mg IM on 04/21 - Sertraline 150 mg daily - Hydroxyzine 50 mg TID - remeron 45 mg qhs - trazodone 200 mg QHS - continue to titrate off Carbamazepine, continue with Depakene 500 mg daily + 1500 mg QHS for mood stabilization and AED -consider adding clonidine for impulsivity if needed -Hydroxyzine, benadryl and Geodon PRN for agitation/aggression -Encourage patient to participate in groups to work on coping skills. -Hopeful for discharge once patient gets placement, [facility] workers compensation paralegal continuing to work with guardian for placement, patient was denied a crisis bed in [facility]. Guardian and doctor of veterinary medicine looking into long-term half-way placement.
[2024-04-21] MEDS: PALIPERIDONE IM 234 MG/1.5 ML SYG IM STA (11:26)
[2024-04-21] MEDS: carBAMazepine 200 MG TAB PO SCH (20:49)
[2024-04-22] MEDS ORDERED: PALIPERIDONE 6 MG TAB.ER.24 PO SCH (09:00)
[2024-04-22] MEDS: PALIPERIDONE 3 MG TAB.ER.24 PO SCH (09:47)
--- NOTE | 2024-04-22 11:38 | P.PN ---
Progress Note - Text Progress Note Date: 04/22/24 Interval history: Patient was seen wandering the hallways today. She was agreeable to speak to scenario writer today in the office. She states that she is doing better today with her mood and anxiety, did have complaints of possibly having a infection both on the outside of her vagina and also on her foot which she showed scenario writer her foot, very mild swelling and cracks and dryness on her skin. She was agreeable to start antibiotics for these. Claims that she is going to groups. Continues to be fairly focused on discharge and the good news of possibly getting into a senior care in [place]. She was much more cooperative today with scenario writer, we spoke about long-acting injection she will get her second dose on Friday which she is okay with. Denying any problems with her medications at this time or side effects. She denies suicidal ideation, identified method, intent, or plan. She also denies homicidal ideation, intent, or plan. She is denying any auditory or visual hallucinations. Mental status exam: General Appearance: Patient appears to be overweight, shaved head, than stated age is alert, directable, and attempts to cooperate. Patient appears to have fair hygiene and grooming. Behavior: Patient is seated without any agitated behavior. Improving, more cooperative today Speech: Patient's speech is fluent and non-pressured. Mood/Affect: Patient reports their mood is "good", affect is congruent and improving affect Suicidality/Homicidality: Patient denies having any homicidal ideation intent or plan. Denies any suicidal ideations intent or plan Perceptions: Patient denies any visual hallucinations. Denies any auditory hallucinations. Though content/process: There is no evidence of any overtly delusional thought content and thought process is linear and goal-directed. focused on discharge Memory and concentration: AOX3, grossly intact for the purposes of this session Judgment and insight: chronically poor/impulsive, improving mildly IMPRESSIONS: Schizoaffective disorder Mild intellectual disability borderline personality disorder Plan: -Patient is admitted under voluntary status to MHU for stabilization of psychiatric symptoms and safety. Patient has signed adult voluntary form and medication consent and is placed in patient's chart. -Patient continues to meet criteria for inpatient psychiatric admission for symptom stabilization and safety. -Medications : - taper off invega PO as patient received Invega sustenna 234 mg IM on 04/21, next dose of 156 mg IM will be due on 04/26 and monthly dose of 234 mg IM will be due on 05/24 - Sertraline 150 mg daily - Hydroxyzine 50 mg TID - remeron 45 mg qhs - increase trazodone 300 mg QHS - continue to titrate off Carbamazepine, continue with Depakene 500 mg daily + 1500 mg QHS for mood stabilization and AED -added keflex and flagyl abx for food infection and vaginal abscess/infection. -consider adding clonidine for impulsivity if needed -Hydroxyzine, benadryl and Geodon PRN for agitation/aggression -Encourage patient to participate in groups to work on coping skills. -Hopeful for discharge once patient gets placement, [facility].patient apparently is going to be accepted to a senior care in [place] however wont be able to transferred until friday.
[2024-04-22] MEDS: CEPHALEXIN 500 MG CAP PO SCH (13:16)
[2024-04-22] MEDS: metroNIDAZOLE 500 MG TAB PO SCH (13:16)
[2024-04-22] MEDS: PALIPERIDONE 3 MG TAB.ER.24 PO ONE (20:18)
[2024-04-22] MEDS: traZODone HCL 100 MG TAB PO SCH (20:18)
[2024-04-23] MEDS: PALIPERIDONE 3 MG TAB.ER.24 PO ONE (08:18)
--- NOTE | 2024-04-23 11:36 | P.PN ---
Progress Note - Text Progress Note Date: 04/23/24 Interval history: Patient was seen wandering the hallways today. She was agreeable to speak to radio script writer today in the office. Patient was seen in group earlier today. She states that she is doing better today with her mood and anxiety. Claims that she is happy to hear that she will likely be accepted to a retirement on Friday. States that she feels the medications have been helping quite a bit. States that she feels the infection and pain have been improving. Claims that she is going to groups. Continues to be fairly focused on discharge. Denying any problems with her medications at this time or side effects. She denies suicidal ideation, identified method, intent, or plan. She also denies homicidal ideation, intent, or plan. She is denying any auditory or visual hallucinations. Mental status exam: General Appearance: Patient appears to be overweight, shaved head, than stated age is alert, directable, and attempts to cooperate. Patient appears to have fair hygiene and grooming. Behavior: Patient is seated without any agitated behavior. Improving, more cooperative today Speech: Patient's speech is fluent and non-pressured. Mood/Affect: Patient reports their mood is "ok", affect is congruent and improving affect Suicidality/Homicidality: Patient denies having any homicidal ideation intent or plan. Denies any suicidal ideations intent or plan Perceptions: Patient denies any visual hallucinations. Denies any auditory hallucinations. Though content/process: There is no evidence of any overtly delusional thought content and thought process is linear and goal-directed. focused on discharge, improving Memory and concentration: AOX3, grossly intact for the purposes of this session Judgment and insight: chronically poor/impulsive, improving mildly IMPRESSIONS: Schizoaffective disorder Mild intellectual disability borderline personality disorder Plan: -Patient is admitted under voluntary status to MHU for stabilization of psychiatric symptoms and safety. Patient has signed adult voluntary form and medication consent and is placed in patient's chart. -Patient continues to meet criteria for inpatient psychiatric admission for symptom stabilization and safety. -Medications : - received Invega sustenna 234 mg IM on 04/21, next dose of 156 mg IM will be due on 04/26 and monthly dose of 234 mg IM will be due on 05/24 - Sertraline 150 mg daily - Hydroxyzine 50 mg TID - remeron 45 mg qhs - trazodone 300 mg QHS - d/c Carbamazepine, continue with Depakene 500 mg daily + 1500 mg QHS for mood stabilization and AED -keflex and flagyl abx for food infection and vaginal abscess/infection. -consider adding clonidine for impulsivity if needed -Hydroxyzine, benadryl and Geodon PRN for agitation/aggression -Encourage patient to participate in groups to work on coping skills. -Hopeful for discharge once patient gets placement, will [facility] working with [facility] for help with [facility]. patient apparently is going to be accepted to a retirement in [place] however wont be able to transferred until friday
[2024-04-23] MEDS: NAPROXEN 250 MG TAB PO PRN (13:28)
[2024-04-23 14:37] LABS: Glucose,Whole Blood 149 mg/dL (70-110)
--- NOTE | 2024-04-23 20:29 | P.PN ---
Progress Note - Text Progress Note Date: 04/23/24 Patient is a 33-year-old female with past medical history of GERD and seizures is seen in the MHU for dizziness that started earlier today. Per MHU nurse, around 6:50 PM patient was found laying on the floor flailing and accidentally bumped her head onto the wall. Patient reported noticing loss of sensation on her left side after the incident. Patient now complains of numbness, weakness, and tingling sensation on her entire left side. Per MHU nurse, patient is very somatic. Patient denies fever, chills, shortness of breath, chest pain, belly pain, nausea, vomiting. Vitals temperature 98.1, heart rate 120, blood pressure 131/76, O2 sat 97% on room air Labs show glucose of 149 Review of systems: Pertinent positives and negatives as discussed in HPI, a complete review of systems was performed and all other systems are negative. PMH: GERD and seizures Allergies: Acetaminophen, Liu pepper, citrus and derivatives, haloperidol, lorazepam, orange juice, penicillins Social history: Tobacco: Never reported Alcohol: Drank a fifth of Zabrina prior to admission Recreational drugs: Marijuana use Travel: No recent travel history Sick contacts: No sick contacts Physical examination: Vital signs reviewed General: nontoxic, no distress, appears at stated age Derm: warm, dry, intact Head: atraumatic, normocephalic, symmetric Eyes: EOMI, anicteric sclera Mouth: no lip lesion, mucus membranes moist Cardiovascular: S1 S2 reg, no murmur Lungs: CTA bilateral, no rhonchi, no rales, no accessory muscle use Abdominal: soft, non-tender to palpation Extremities: No cyanosis, clubbing, or pedal edema. Neuro: Alert, Oriented, Gross neurological examination did not reveal any focal deficits. Slightly reduced muscle strength in left upper and lower extremity compared to the right side, 4 out of 5 on the left. Reduced sensation on the left side of face, left arm and left leg compared to the right. Cranial nerves grossly intact. Psych: well appearing, appropriate affect Assessment/Plan: #. Rule out acute hemorrhagic stroke Given patient's physical exam findings and history would like to rule out hemorrhagic stroke CT of the brain without contrast ordered
--- NOTE | 2024-04-23 21:18 | CT ---
EXAMINATION TYPE: CT brain wo con DATE OF EXAM: 04/23/2024 8:53 PM COMPARISON: 04/04/2024. CLINICAL INDICATION: Female, 33 years old with history of head trauma minor, loss of sensation left s maureen, head trauma minor, 30 mins ago fell and was shaking. Staff thinks she had a seizure. loss of sen sation left side TECHNIQUE: Brain: Axial CT images of the brain were obtained with coronal and sagittal reformats created and rev iewed. Contrast used: None. Oral contrast used: None. CT DLP: 1134 mGycm, Automated exposure control for dose reduction was used. FINDINGS: Brain: Extra-axial spaces: No abnormal extra-axial fluid collections. Ventricular system: Within normal limits Cerebral parenchyma: No acute intraparenchymal hemorrhage or mass effect. The hunter-white junction is well differentiated. Cerebellum: Unremarkable. Mass effect: No evidence of midline shift. Intracranial vasculature: unremarkable Soft tissues: Normal. Calvarium/osseous structures: No depressed skull fracture. Paranasal sinuses and mastoid air cells: Mild scattered paranasal sinus disease. Visualized orbits: Orbital contents are intact. IMPRESSION: No acute intracranial process. [facility], , 04/23/2024 9:16 PM
[2024-04-24] MEDS: ONDANSETRON ODT 8 MG TAB.RAPDIS PO PRN (04:22)
--- NOTE | 2024-04-24 14:50 | P.PN ---
Progress Note - Text Progress Note Date: 04/24/24 Interval history: Patient was seen wandering the hallways and was directable and agreeable to speak with commercial insurance underwriter. Patient is quite somatically focused and states that she would like to be tested for COVID-19 due to having nausea. She denies any respiratory symptoms and does not display any respiratory symptoms or acute distress. she states that her mood is "not good" due to having poor sleep last night. She endorses trouble falling asleep. She denies concerns with medic ations. She endorses good appetite. At this time patient denies any suicidal or homicidal ideations intent or plan. Denies any Auditory or visual hallucinations. Patient denies any side effects from the medications and has been compliant with meds. Mental status exam: General Appearance: Patient appears to be overweight, shaved head, than stated age is alert, directable, and attempts to cooperate. Patient appears to have fair hygiene and grooming. Behavior: Patient is seated without any agitated behavior. Reactive, attempting to seek attention several times Speech: Patient's speech is fluent and non-pressured. Mood/Affect: Patient reports their mood is "ok", affect is congruent and improving affect Suicidality/Homicidality: Patient denies having any homicidal ideation intent or plan. Denies any suicidal ideations intent or plan Perceptions: Patient denies any visual hallucinations. Denies any auditory hallucinations. Though content/process: There is no evidence of any overtly delusional thought content and thought process is linear and goal-directed. Somatically focused Memory and concentration: AOX3, grossly intact for the purposes of this session Judgment and insight: chronically poor/impulsive, poor frustration tolerance Assessment/Plan: Continue with current diagnosis. Patient continues to meet criteria for inpatient psychiatric admission for symptom stabilization and safety. COVID-[address] brain showed NAP. Decrease Remeron to 30 mg qHS for sleep. Add Clonidine 0.1 mg qHS for impulse control/sleep. Patient will be maintained on current psychotropic medication regimen. Monitor for medication compliance and for any psychotropic medication side effects. Will continue to monitor ongoing response to treatment. Encouraged participation in milieu.
[2024-04-24] MEDS: ZIPRASIDONE 20 MG VIAL IM PRN (16:28)
--- NOTE | 2024-04-24 17:57 | P.MHFACE ---
Face to Face Restrain/Seclus - Evaluation Patient's Immediate Situation: Endangers self safety, Endangers staff safety, V iolent behavior Patient's Reaction to the Intervention: Uncooperative, Angry, Hostile, Belligerent, Aggressive, Combative Patient's Reaction to the Intervention - Comment: Patient was becoming increasingly agitated because she was upset results of C. diff test were not returning back immediately. She was calling police numerous times as well as reporting APS over the phone. Staff attempted to verbally redirect her numerous times over the course of this afternoon. However, patient's escalation was growing and she was becoming verbally abusive and physically menacing to staff. She was yelling and screaming and would not respond to relaxation strategies or using coping skills. She was name-calling nurses and this provider when attempting to speak with her. She was offered medication for agitation and initially refused and proceeded to become more agitated. She was threatening staff. Heriberto Freeman was called. She called RNs "white b". Patient spit at this provider, called this provider racial slurs, and said "go back to your country". She was escorted to her room and accepted PRN Geodon IM and Benadryl IM without any hands-on. However, patient then proceeded to pace the halls, screaming, and growing more aggressive. She began to bang the exit doors and would not respond to any verbal redirection again, despite numerous attempts made by staff members. She began banging her head against the glass window and when asked to back away, she kept screaming "f you, b". Heriberto freeman was called again and hands-on was required to move her to the quiet room. This provider spoke with the patient after she was laying in the quiet room without any restraints. Patient was not in any acute distress. No signs of injury and no abrasion to the head. However, she reported a headache and pain in her ankle. She is able to ambulate independently afterwards without any issues. IM also asked to assess patient. Patient is unable to understand her threatening behaviors or the threats to self or staff. She yells that the security put hands on her. She then began to punch towards sitter and security in the room. Another heriberto freeman needed to be called and patient was then placed in 4 point restraints. Patient was re-assessed by this provider and was calmer. Attempted to discuss behavior chain analysis. She was talking, able to move all extremities, had intact pulses, no signs of new abrasions (reports some pain in her L ankle but had prior foot abrasion), no cyanosis, and was not in any acute distress. She asked if anyone is pressing charges. She also asked for dinner. Patient's Medical & Behavioral Condition: Awake, Alert, Follows directions Need to Continue or Terminate Restraint or Seclusion: Continue Need to Continue or Terminate Restraint/Seclusion - Comment: May be discontinued after patient is calm and demonstrates no agitation Face to Face Eval of Restraint Date: 04/24/24 Face to Face Eval of Restraint Time: 17:20
--- NOTE | 2024-04-24 18:28 | P.PN ---
Progress Note - Text Progress Note Date: 04/24/24 Examined patient at bedside. Complaining of headache after repeatedly hitting her head against the door. Patient did not agree to further exam as she is psychotic. Recommended warm compresses as well as NSAIDs for now. If any further nausea vomiting or vision changes, sound physicians should be contacted.
[2024-04-24] MEDS: cloNIDine HCL 0.1 MG TAB PO SCH (20:53)
[2024-04-24] MEDS: MIRTAZAPINE 15 MG TAB PO SCH (20:53)
--- NOTE | 2024-04-24 22:10 | CT ---
EXAMINATION TYPE: CT brain wo con DATE OF EXAM: 04/24/2024 COMPARISON: Prior CT one day earlier HISTORY: unwitnessed fall CT DLP: 57.4 mGycm. Automated Exposure Control for Dose Reduction was Utilized. TECHNIQUE: CT scan of the head is performed without contrast. FINDINGS: There is no acute intracranial hemorrhage, mass effect, or midline shift identified. The ventricles and sulci are within normal limits in size. Alvarez-white matter differentiation is maintain ed. The calvarium is intact. The globes are intact and the visualized sinuses are clear. IMPRESSION: No acute intracranial hemorrhage or midline shift is seen. No significant change from CT one day earlier. [facility], , 04/24/2024 10:08 PM
[2024-04-25 10:13] VITALS: RESP 16
--- NOTE | 2024-04-25 11:54 | P.PN ---
Progress Note - Text Progress Note Date: 04/25/24 Interval history: Patient was seen wandering the hallways and was directable and agreeable to s peak with financial writer. Patient is fixated on discharge today and asks about being able to speak with a friend. Discussed the safety issues that occurred yesterday and patient expressed no insight or remorse into her actions. She said she was frustrated with hospitalization. She was externalizing blame but she admitted that her medical concerns have been addressed during this hospitalization. Discussed interventions to prevent decompensation the future and patient is agreeable with asking for when necessary medication if she is becoming agitated. She is agreeable with receiving second dose of Invega Sustenna tomorrow. She denies any other concerns including pain in her extremities, CP, N/V/D, etc. Patient is noted to be ambulating well but due to her self reported concerns of difficulty ambulating, patient is continued to have clinical safety specialist. She reports good sleep and appetite. At this time patient denies any suicidal or homicidal ideations intent or plan. Denies any Auditory or visual hallucinations. Patient denies any side effects from the medications and has been compliant with meds. Mental status exam: General Appearance: Patient appears to be overweight, shaved head, than stated age is alert, directable, and attempts to cooperate. Patient appears to have fair hygiene and grooming. No tremors and has ROM in all extremities Behavior: Patient is seated without any agitated behavior. Reactive, attempting to seek attention Speech: Patient's speech is fluent and non-pressured. Mood/Affect: Patient reports their mood is "fine", affect is congruent and improving affect Suicidality/Homicidality: Patient denies having any homicidal ideation intent or plan. Denies any suicidal ideations intent or plan Perceptions: Patient denies any visual hallucinations. Denies any auditory hallucinations. Though content/process: There is no evidence of any overtly delusional thought content and thought process is linear and goal-directed. Discharge focused Memory and concentration: AOX3, grossly intact for the purposes of this session Judgment and insight: chronically poor/impulsive, poor frustration tolerance Assessment/Plan: Continue with current diagnosis. Patient continues to meet criteria for inpatient psychiatric admission for symptom stabilization and safety. Second CT brain showed NAP. Patient will be maintained on current psychotropic medication regimen. Monitor for medication compliance and for any psychotropic medication side effects. Will continue to monitor ongoing response to treatment. Encouraged participation in milieu.
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
[2024-04-26] MEDS: PALIPERIDONE IM 156 MG/ML SYG IM STA (12:39)
[2024-04-26] MEDS: OLANZapine 10 MG TAB PO SCH (19:05)
[2024-04-27] MEDS: LOPERAMIDE 2 MG CAP PO STA (06:37)
[2024-04-27 06:56] VITALS: PULSE 109; TEMP 97
[2024-04-27 08:53] VITALS: BP 119/78
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
== END 2024-04-27 13:25 | disposition home or self-care (01) | DRG 750 ==
LOC: 3MHU 16:28
PROVIDERS: ADMIT Psychiatry & Neurology Psychiatry; ATTEND Psychiatry & Neurology Psychiatry
DX: F25.9 Schizoaffective disorder, unspecified (principal); Z68.43 Body mass index [BMI] 50.0-59.9, adult; F70 Mild intellectual disabilities; R56.9 Unspecified convulsions; E66.01 Morbid (severe) obesity due to excess calories; E03.8 Other specified hypothyroidism; F60.3 Borderline personality disorder; R45.88 Nonsuicidal self-harm; S69.82XA Other specified injuries of left wrist, hand and finger(s), initial encounter; L02.429 Furuncle of limb, unspecified; F41.9 Anxiety disorder, unspecified; R45.6 Violent behavior; L29.9 Pruritus, unspecified; K21.9 Gastro-esophageal reflux disease without esophagitis; R21 Rash and other nonspecific skin eruption; T78.49XA Other allergy, initial encounter; R03.0 Elevated blood-pressure reading, without diagnosis of hypertension; H53.8 Other visual disturbances; R51.9 Headache, unspecified; Z91.51 Personal history of suicidal behavior; Z78.1 Physical restraint status; Z72.0 Tobacco use; Z91.410 Personal history of adult physical and sexual abuse; Z91.018 Allergy to other foods
CPT/HCPCS: 70450; 80061; 80156; 80164; 81001; 83036; 83721; 84439; 84443; 84484; 87635; 87636; 93005